=== PATIENT | male | born 1975 | race Caucasian/White ===

== ENCOUNTER 2020-04-23 14:51 | Inpatient (IN) | payer OTHER ==
[~2020-04-23] VITALS: Ht 175.3 cm; Wt 77.7 kg
[2020-04-23 16:30] VITALS: BP 119/76
[2020-04-23 19:14] LABS: URINE AMPHETAMINES > 1000 (1000ng/ml); URINE BARBITURATES < 200 (200ng/ml); URINE BENZODIAZEPINES > 200 (200ng/ml); URINE CANNABINOIDS (THC) < 50 (50ng/ml); URINE COCAINE > 300 (300ng/ml); URINE METHADONE > 300 (300ng/ml); URINE OPIATES > 300 (300ng/ml)
[2020-04-23 19:18] LABS: URINE PHENCYCLIDINE < 25 (25ng/ml)
[2020-04-23 19:20] LABS: BILIRUBIN NEGATIVE (NEGATIVE); BLOOD NEGATIVE (NEGATIVE); CLARITY CLEAR (CLEAR); COLOR YELLOW (YELLOW); EPITHELIAL CELLS 0-2; GLUCOSE NEGATIVE (NEGATIVE); KETONE NEGATIVE (NEGATIVE); LEUKO ESTERASE NEGATIVE (NEGATIVE); MUCOUS 2+; NITRITE NEGATIVE (NEGATIVE); PH 6.5 (5.0-9.0); RBC 0-2 rbc/hpf (0-2); SPECIFIC GRAVITY 1.015 (1.005-1.030); UROBILINOGEN 0.2 E.U./dl (0.2-1.0); WBC 0-2 wbc/hpf (0-5)
[2020-04-23 19:55] LABS: BASO % 0.6 % (0.0-1.0); EOS # 0.2 10*3/uL (0.0-0.4); EOS % 3.9 % (1.0-4.0); LYMPH % 38.5 % (27.0-41.0); MEAN CELL VOLUME 91.5 fl (80.0-94.0); MEAN CORPUSCULAR HGB 29.2 pg (27.0-31.0); MEAN PLATELET VOLUME 9.9 fl (9.6-12.3); MONO # 0.5 10*3/uL (0.1-1.0); MONO % 8.8 % (3.0-9.0); NEUT # 2.4 10*3/uL (2.3-7.9); PLATELET COUNT AUTOMATED 172 10*3/uL (130-400); RED BLOOD COUNT 4.48 10*6/uL (4.50-5.90); RED CELL DISTRI WIDTH 13.2 % (0-14.5); WHITE BLOOD COUNT 5.1 10*3/uL (4.8-10.8)
[2020-04-23 20:00] VITALS: BP 118/69
[2020-04-23 20:10] LABS: ALBUMIN 3.5 gm/dl (3.1-4.5); ALKALINE PHOSPHATASE 50 U/L (45-117); BUN 13 mg/dl (7-24); CHLORIDE 108 mmol/L (98-107); CREATININE 1.03 mg/dL (0.70-1.30); POTASSIUM 3.8 mmol/L (3.5-5.1); SGOT/AST 34 IU/L (3-35); SGPT/ALT 68 U/L (12-78); SODIUM 139 mmol/L (136-145)
[2020-04-23 20:18] LABS: ETHYL ALCOHOL < 3.0 mg/dl (<3)
[2020-04-24] VITALS: BP 97/49
[2020-04-24 08:00] VITALS: BP 85/61
[2020-04-24 10:07] VITALS: BP 114/77
[2020-04-24 12:00] VITALS: BP 134/78
[2020-04-24 16:00] VITALS: BP 120/79
[2020-04-24 20:00] VITALS: BP 122/81
[2020-04-25] VITALS: BP 125/82
[2020-04-25 08:00] VITALS: BP 106/79
[2020-04-25 12:00] VITALS: BP 110/64
[2020-04-25 16:00] VITALS: BP 112/54
[2020-04-25 20:00] VITALS: BP 128/83
[2020-04-26] VITALS: BP 114/76
[2020-04-26 07:11] LABS: BASO % 0.4 % (0.0-1.0); EOS # 0.2 10*3/uL (0.0-0.4); LYMPH # 2.7 10*3/uL (1.3-4.4); MEAN CELL VOLUME 88.9 fl (80.0-94.0); MEAN CORPUSCULAR HGB 29.1 pg (27.0-31.0); MEAN CORPUSCULAR HGB CONC 32.7 g/dl (33.0-37.0); MONO # 0.6 10*3/uL (0.1-1.0); MONO % 7.5 % (3.0-9.0); NEUT # 4.2 10*3/uL (2.3-7.9); PLATELET COUNT AUTOMATED 197 10*3/uL (130-400); RED BLOOD COUNT 4.95 10*6/uL (4.50-5.90); RED CELL DISTRI WIDTH 13.3 % (0-14.5); WHITE BLOOD COUNT 7.6 10*3/uL (4.8-10.8)
[2020-04-26 08:00] VITALS: BP 117/81; BP 136/75
[2020-04-26] MEDS ORDERED: VITAMIN B-1100 M1 PO (11:23)
[2020-04-26] MEDS ORDERED: MOTRIN 600 MG E4 TAB PO (11:23)
[2020-04-26] MEDS ORDERED: NATURE'S BLEND F1 MG PO (11:23)
[2020-04-26] MEDS ORDERED: DICYCLOMINE HCL20 MG PO (11:23)
[2020-04-26] MEDS ORDERED: METHOCARBAMOL750 M1 PO (11:23)
[2020-04-26] MEDS ORDERED: ATARAX,VISTARIL50 MG PO (11:23)
[2020-04-26] MEDS ORDERED: THERA TABLET400 MCG PO (11:23)
== END 2020-04-26 12:15 | disposition home or self-care (01) | DRG 773 ==
LOC: 5E 14:51
PROVIDERS: Physical Therapist; ADMIT Internal Medicine
DX: F11.23 Opioid dependence with withdrawal (principal); G25.81 Restless legs syndrome; F41.9 Anxiety disorder, unspecified; F31.12 Bipolar disorder, current episode manic without psychotic features, moderate; E87.8 Other disorders of electrolyte and fluid balance, not elsewhere classified; D64.9 Anemia, unspecified; F90.9 Attention-deficit hyperactivity disorder, unspecified type; F17.210 Nicotine dependence, cigarettes, uncomplicated; Z88.0 Allergy status to penicillin